=== PATIENT | male | born 1980 | race Caucasian/White ===

== ENCOUNTER → 2018-01-18 | Outpatient (CLI) | payer OTHER ==
[~2018-01-18] MED LIST: CIPRO500 MG PO; INTESTINEX1 CAP PO
== END | disposition home or self-care (01) ==
LOC: PPHC 10:25
DX: B34.9 Viral infection, unspecified (principal)

== ENCOUNTER → 2018-01-18 | Outpatient (CLI) | payer OTHER | END | disposition home or self-care (01) | LOC: LAB 11:30 | DX: R50.9 Fever, unspecified (principal) ==